=== PATIENT | male | born 1970 | race Caucasian/White ===

== ENCOUNTER 2024-04-15 13:41 | Inpatient (IN) | payer OTHER ==
[~2024-04-15] VITALS: Ht 170.2 cm; Wt 88.3 kg
[2024-04-15 07:30] VITALS: BP 116/82; TEMP 98.1; O2SAT 98
[2024-04-15] MEDS ORDERED: LIDOCAINE 1% INJ 50 ML MDV IJ ONE ×2 (14:03→14:41)
[2024-04-15] MEDS: CEFAZOLIN 2 GM in IV D5W 100 ML IV ONE (14:56)
[2024-04-15] MEDS: LIDOCAINE 1% INJ 50 ML MDV IJ ONE (14:58)
[2024-04-15 15:37] LABS: BASOPHILS % (AUTO) 0.3 % (0.0-2.0); EOSINOPHILS # (AUTO) 0.3 K/uL (0.0-0.7); EOSINOPHILS % (AUTO) 4.1 % (0.0-6.0); HEMATOCRIT 44 % (39-51); LYMPHOCYTES # (AUTO) 1.4 K/uL (0.8-4.8); LYMPHOCYTES % (AUTO) 19.5 % (20.0-44.0); MEAN CORPUSCULAR HEMOGLOBIN 30 PG (26.0-33.0); MEAN CORPUSCULAR HGB CONC 35 g/dl (31.0-36.0); MEAN CORPUSCULAR VOLUME 87 fL (80-96); MONOCYTES # (AUTO) 0.5 K/uL (0.1-1.30); MONOCYTES % (AUTO) 7.1 % (2.0-12.0); NEUTROPHILS # (AUTO) 4.9 K/uL (1.8-8.9); PLATELET COUNT (AUTO) 235 K/uL (150-450); RED BLOOD CELL COUNT(AUTO) 4.98 MIL/uL (4.5-6.0); RED CELL DISTRIBUTION WIDTH 14.3 % (11.5-15.0)
[2024-04-15 15:54] LABS: CALCIUM, SERUM 9.1 mg/dL (8.5-10.1); CREATININE 1.3 mg/dL (0.6-1.3); POTASSIUM 4.2 mmol/L (3.5-5.1)
[2024-04-15 15:57] LABS: INR 0.97 (0.91-1.10); PARTIAL THROMBOPLASTIN TIME 29.6 SEC (24.3-34.3); PROTHROMBIN TIME 10.3 SECS (9.2-11.1)
[2024-04-15] MEDS ORDERED: Z GUARD REMEDY 4 OZ OINT TP PRN (16:30)
[2024-04-15] MEDS ORDERED: MAGNESIUM HYDROXIDE 30 ML UDC PO PRN (16:30)
[2024-04-15] MEDS ORDERED: ONDANSETRON HCL/PF 4 MG/2 ML VIAL IVP PRN (16:30)
[2024-04-15] MEDS ORDERED: ACETAMINOPHEN 325 MG TABLET PO PRN (16:30)
[2024-04-15] MEDS ORDERED: MAG HYDROX/AL HYDROX/SIMETH 30 ML UDC PO PRN (16:30)
[2024-04-15] MEDS ORDERED: TDAP [DIPH/PERTUSSIS/TET] 0.5 ML VIAL IM ONE (16:36)
[2024-04-15] MEDS: TDAP [DIPH/PERTUSSIS/TET] 0.5 ML VIAL IM ONE (16:38)
[2024-04-15] MEDS: HYDROCODONE/APAP 5/325MG TABLET PO PRN (17:21)
[2024-04-15 20:00] VITALS: BP 116/82; TEMP 98.1; O2SAT 98
[2024-04-15] MEDS: CEFAZOLIN 1 GM in IV D5W 50 ML IV SCH (20:22)
[2024-04-16 06:34] LABS: BASOPHILS % (AUTO) 0.4 % (0.0-2.0); EOSINOPHILS # (AUTO) 0.5 K/uL (0.0-0.7); HEMATOCRIT 41 % (39-51); HEMOGLOBIN 14.2 g/dL (13.5-17.5); LYMPHOCYTES # (AUTO) 1.8 K/uL (0.8-4.8); LYMPHOCYTES % (AUTO) 31.3 % (20.0-44.0); MEAN CORPUSCULAR HEMOGLOBIN 30 PG (26.0-33.0); MEAN CORPUSCULAR HGB CONC 35 g/dl (31.0-36.0); MEAN CORPUSCULAR VOLUME 87 fL (80-96); MONOCYTES # (AUTO) 0.4 K/uL (0.1-1.30); MONOCYTES % (AUTO) 6.2 % (2.0-12.0); NEUTROPHILS # (AUTO) 3.2 K/uL (1.8-8.9); NEUTROPHILS % (AUTO) 54.1 % (43.0-81.0); PLATELET COUNT (AUTO) 189 K/uL (150-450); RED BLOOD CELL COUNT(AUTO) 4.71 MIL/uL (4.5-6.0); RED CELL DISTRIBUTION WIDTH 14.3 % (11.5-15.0); WHITE BLOOD COUNT (AUTO) 5.8 K/uL (4.3-11.0)
[2024-04-16 06:51] LABS: CALCIUM, SERUM 8.5 mg/dL (8.5-10.1); CREATININE 0.9 mg/dL (0.6-1.3); MAGNESIUM 2.2 mg/dL (1.8-2.4); PHOSPHORUS 3.6 mg/dL (2.5-4.9); POTASSIUM 3.9 mmol/L (3.5-5.1)
[2024-04-16 08:00] VITALS: BP 102/66; TEMP 97.6; O2SAT 99
[2024-04-16 16:00] VITALS: BP 118/79; TEMP 97.9; O2SAT 98
[2024-04-16 20:00] VITALS: BP 100/68; TEMP 97.7; O2SAT 99
[2024-04-16 20:36] VITALS: BP 106/67; TEMP 97.7; O2SAT 99
[2024-04-17 08:34] VITALS: BP 100/68; TEMP 98.1; O2SAT 97
[2024-04-17 16:18] VITALS: BP 116/76; TEMP 98.2; O2SAT 97
[2024-04-17 20:00] VITALS: BP 116/75; TEMP 97.7; O2SAT 98
[2024-04-18] MEDS ORDERED: ANESTHESIA TRAY IN PYXIS 1 EA TRAY MC ONE (07:08)
[2024-04-18] MEDS ORDERED: BUPIVACAINE 0.5 % PF 150 MG/30 ML VIAL ONE (07:09)
[2024-04-18] MEDS ORDERED: LIDOCAINE 1% INJ 50 ML MDV IJ ONE (07:09)
[2024-04-18] MEDS ORDERED: FENTANYL PF 100MCG/2ML AMPUL ONE (07:46)
[2024-04-18] MEDS ORDERED: LIDOCAINE 1%-EPI 1:100,000 20 ML VIAL ONE (07:53)
[2024-04-18 08:00] VITALS: BP 120/81; TEMP 98.1; O2SAT 98
[2024-04-18] MEDS ORDERED: BACITRACIN ZINC OINT (15 GM) 15 GM TUBE TP ONE (08:40)
[2024-04-18 09:50] VITALS: BP 114/83; TEMP 98; O2SAT 100
== END 2024-04-18 14:35 | disposition home or self-care (01) | DRG 906 ==
LOC: ER 14:39 → MED 16:12
PROVIDERS: ADMIT Internal Medicine; ATTEND Internal Medicine
PROC: 0X6W0Z3 Detachment at Left Little Finger, Low, Open Approach (ICD-10-PCS; principal; 2024-04-15)
DX: S68.627A Partial traumatic transphalangeal amputation of left little finger, initial encounter (principal); X58.XXXA Exposure to other specified factors, initial encounter; Y93.89 Activity, other specified; Y92.89 Other specified places as the place of occurrence of the external cause; E66.9 Obesity, unspecified; Z68.30 Body mass index [BMI] 30.0-30.9, adult
CPT/HCPCS: 36415; 71045-TC; 73130-TC; 80048-TC; 83735-TC; 84100-TC; 85025-TC; 85730-TC; 86850-TC; 90715; A4217; A4223; G0378; J0690; J2704; J3010; J3490; J7030; J7040; J7060